=== PATIENT | male | born 1940 | race Caucasian/White ===

== ENCOUNTER 2017-07-17 10:09 | Emergency (ER) | payer OTHER ==
[2017-07-17 10:15] VITALS: BMI 28.3
[2017-07-17 10:17] VITALS: RESP 18; TEMP 98.5
--- NOTE | 2017-07-17 10:39 | C.PDOC ---
History Of Present Illness 76 year old male presents to the ED with complaints of lower back pain for five days. As per patient's son, patient has been having difficulty urinating, feeling incomplete void. He also reports congestion and difficulty hearing, describes "it's as if his hears are covered." Patient denies trauma, hematuria, incontinence. Time Seen by Provider: 07/17/17 10:22 Chief Complaint (Nursing): Back Pain History Per: Patient, Family (son ) History/Exam Limitations: no limitations Onset/Duration Of Symptoms: Days (5 days ) Current Symptoms Are (Timing): Still Present Previous Symptoms: None Associated Symptoms: None Recent travel outside of the [place]: No Additional History Per: Patient Past Medical History Reviewed: Historical Data, Nursing Documentation, Vital Signs Vital Signs: Last Vital Signs Temp 98.5 F 07/17/17 12:32 Pulse 61 07/17/17 12:32 Resp 18 07/17/17 12:32 BP 100/65 07/17/17 12:32 Pulse Ox 97 07/17/17 15:59 - Medical History PMH: No Chronic Diseases Surgical History: No Surg Hx Family History: States: Unknown Family Hx - Social History Hx Alcohol Use: No Hx Substance Use: No - Immunization History Hx Tetanus Toxoid Vaccination: No Hx Influenza Vaccination: No Hx Pneumococcal Vaccination: No Review Of Systems Constitutional: Negative for: Fever, Chills Eyes: Negative for: Vision Change ENT: Positive for: Nose Congestion. Negative for: Ear Pain, Ear Discharge Cardiovascular: Negative for: Chest Pain, Palpitations Respiratory: Negative for: Cough, Shortness of Breath Gastrointestinal: Negative for: Nausea, Vomiting, Abdominal Pain, Diarrhea, Constipation Genitourinary: Positive for: Other (difficulty urinating ). Negative for: Hematuria Musculoskeletal: Positive for: Back Pain Neurological: Negative for: Weakness, Numbness, Headache, Dizziness Physical Exam - Physical Exam Appears: Non-toxic, No Acute Distress Skin: Warm, Dry Head: Atraumatic, Normacephalic Eye(s): bilateral: Normal Inspection, EOMI Ear(s): Bilateral: Normal Nose: Normal, No Discharge Oral Mucosa: Moist Neck: Normal ROM, Supple Chest: Symmetrical, No Deformity Cardiovascular: Rhythm Regular, No Murmur Respiratory: Normal Breath Sounds, No Rales, No Rhonchi, No Wheezing Gastrointestinal/Abdominal: Soft, No Tenderness, No Distention, No Guarding, No Rebound Back: No CVA Tenderness, No Vertebral Tenderness, No Decreased ROM, Paraspinal Tenderness (minimal paralumbar tenderness ), No Straight Leg Raising Extremity: Bilateral: Atraumatic, No Pedal Edema, Normal Color And Temperature, Normal ROM Neurological/Psych: Oriented x3, Normal Speech Gait: Steady ED Course And Treatment - Laboratory Results Result Diagrams: 07/17/17 11:07 07/17/17 11:07 Lab Interpretation: No Acute Changes O2 Sat by Pulse Oximetry: 97 (room air) Pulse Ox Interpretation: Normal - Other Rad Abdomen Flat Plate X-Ray: Viewed By Me, Read By Radiologist Interpretation: FINDINGS: BOWEL: Current study reveals a large amount of stool seen throughout colon consistent with retention/ constipation. No evidence of acute mechanical bowel obstruction. BONES: Multilevel degenerative spondylosis of the lumbar (particularly at the L5-S1 level to a less degree remaining lumbar and visualized lower thoracic spine. OTHER FINDINGS: None. IMPRESSION: Findings consistent with constipation. No evidence to suggest acute mechanical bowel obstruction Progress Note: Abdomen flat plate, UA, and blood work were ordered. Patient was given Toradol and IV fluids. Medical Decision Making Medical Decision Making: Impression: Back pain Prior records reviewed: None available for review Plan: * Labs * Xray * IV NS and Toradol Progress: Labs reviewed with no acute findings. UA was normal, no blood, ketones or other abnormality. Xray shows fecal retention. On re-exam patient is resting comfortably and reports pain has improved. Discussed results with patient and family. Recommend analgesics as needed and will prescribe Rx for constipation Disposition - Disposition Referrals: [facility] [Outside] [facility] [Outside] Shabbir Wayne MD [Staff Provider] - Disposition: HOME/ ROUTINE Disposition Time: 12:30 Condition: IMPROVED Additional Instructions: Tus laboratorios yarely normales. Walter radiografa muestra estreimiento. Por favor sudarshan ms agua y coma ms fibra para ayudar con el estreimiento. Emily un seguimiento con walter mdico o clnica para ms evaluacin Prescriptions: Docusate Sodium [Colace] 100 mg PO Q8 #60 capsule Ibuprofen [Motrin] 600 mg PO Q8 #30 tab Magnesium Citrate [Citrate of Mag] 300 ml PO ONCE #1 bottle Instructions: Constipation (DC), Acute Low Back Pain (DC) Forms: [employer] (Khmer) Print Language: ESTONIAN - POA Present On Arrival: None - Clinical Impression Clinical Impression: Low back pain, Constipation - Scribe Statement The provider has reviewed the documentation as recorded by the Scriballyn Lewis All medical record entries made by the Patriciaiballyn were at my direction and personally dictated by me. I have reviewed the chart and agree that the record accurately reflects my personal performance of the history, physical exam, medical decision making, and the department course for this patient. I have also personally directed, reviewed, and agree with the discharge instructions and disposition.
[2017-07-17] MEDS ORDERED: Sodium Chloride 0.9% 1,000 ML IV ONE (10:40)
[2017-07-17] MEDS ORDERED: Sodium Chloride 0.9% 1,000 ML ONE (10:53)
--- NOTE | 2017-07-17 11:00 | RAD ---
HISTORY: abd pain COMPARISON: No prior. FINDINGS: BOWEL: Current study reveals a large amount of stool seen throughout colon consistent with retention/ constipation. No evidence of acute mechanical bowel obstruction. BONES: Multilevel degenerative spondylosis of the lumbar (particularly at the L5-S1 level to a less degree remaining lumbar and visualized lower thoracic spine. OTHER FINDINGS: None. IMPRESSION: Findings consistent with constipation. No evidence to suggest acute mechanical bowel obstruction
[2017-07-17 11:10] LABS: BASO % 0.8 % (0.0-2.0); EOS # 1.2 K/uL (0.0-0.7); EOS % 18.6 % (0.0-4.0); HEMATOCRIT 45.3 % (35.0-51.0); LYMPH # 1.9 K/uL (1.0-4.3); LYMPH % 28.4 % (20.0-40.0); MEAN CELL VOLUME 99.6 fL (80.0-94.0); MEAN CORPUSCULAR HEMOGLOBIN 33.5 pg (27.0-31.0); MEAN CORPUSCULAR HGB CONC 33.6 g/dL (33.0-37.0); MEAN PLATELET VOLUME 9.2 fL (7.2-11.7); MONO # 0.4 K/uL (0.0-0.8); MONO % 6.8 % (0.0-10.0); NRBC % 0.1 % (0.0-2.0); RED CELL DISTRIBUTION WIDTH 14.7 % (11.5-14.5); WHITE BLOOD COUNT 6.5 K/uL (4.8-10.8)
[2017-07-17 11:21] LABS: RBC URINE 2 /hpf (0-3); URINE BILIRUBIN NEGATIVE (NEGATIVE); URINE BLOOD NEGATIVE (NEGATIVE); URINE COLOR Amber (YELLOW); URINE GLUCOSE (UA) NORMAL (Normal); URINE KETONE NEGATIVE (NEGATIVE); URINE LEUKOCYTE ESTERASE NEG Leu/uL (Negative); URINE PROTEIN NEGATIVE (NEGATIVE); WBC URINE 1 /hpf (0-5)
[2017-07-17 11:22] LABS: ALB/GLOB RATIO 1.1 (1.0-2.1); ALKALINE PHOSPHATASE 87 U/L (38-126); ALT/SGPT 36 U/L (21-72); AST/SGOT 26 U/L (17-59); BILIRUBIN,TOTAL 1.9 mg/dL (0.2-1.3); BLOOD UREA NITROGEN 15 mg/dL (9-20); CALCIUM 8.3 mg/dl (8.6-10.4); CARBON DIOXIDE 24 mmol/L (22-30); CHLORIDE 106 mmol/L (98-107); GFR AFRICAN-AMERICAN > 60; GLUCOSE,RANDOM 93 mg/dL (75-110); SODIUM 143 mmol/L (132-148); TOTAL PROTEIN 6.8 g/dL (6.3-8.3)
[2017-07-17 12:33] VITALS: BP 100/65; PULSE 61
[2017-07-17 15:59] VITALS: O2SAT 97
== END 2017-07-17 12:34 | disposition home or self-care (01) ==
LOC: C.ER 10:09
DX: K59.00 Constipation, unspecified (principal); M54.5 Low back pain
CPT/HCPCS: 74000; 80053; 81001; 85025; 87086; 96361; 96374; 99284; J1885; J7040